=== PATIENT | male | born 1955 | race Caucasian/White ===

== ENCOUNTER 2020-10-31 19:35 | Inpatient (IN) | payer OTHER ==
[~2020-10-31] VITALS: Ht 188 cm; Wt 57.5 kg
[2020-10-31] MEDS ORDERED: FOLIC ACID 1 MG, MULTIPLE VITAMIN 10 ML, MAGNESIUM SULF SDV 50% 8 MEQ, THIAMINE INJ 100... INJ STA ×5 (20:11)
[2020-10-31 21:10] LABS: Albumin 2.9 g/dL (3.4-5.0); Anion Gap 15 (5-15); Blood Urea Nitrogen 30 mg/dL (7-18); Carbon Dioxide 24 mmol/L (21-32); Chloride 92 mmol/L (98-107); Glucose 88 mg/dL (74-106); Lipase 241 U/L (73-393); Magnesium 2.5 mg/dL (1.6-2.6); Potassium 3.3 mmol/L (3.5-5.1); Sodium 131 mmol/L (136-145)
[2020-10-31 21:12] LABS: Alanine Aminotransferase 29 U/L (16-61); Aspartate Aminotransferase 25 U/L (15-37); BUN/Creatinine Ratio 46.9; GFR African American 161 mL/min; GFR Non-African American 133 mL/min
[2020-10-31 21:14] LABS: Basophils # (auto) 0 10 ^3/uL (0-0.2); Eosinophils # (auto) 0 10 ^3/uL (0-0.8); Monocytes # (auto) 0.1 10 ^3/uL (0-1.3); Platelet Count (auto) 50 10^3/uL (140-450); White Blood Cell 4.1 10^3/uL (4.4-10.8)
[2020-10-31 21:15] LABS: Eosinophils % (auto) 0.8 % (0.0-7.0); Hemoglobin 13.9 g/dL (13.5-17.5); Lymphocytes # (auto) 0.6 10 ^3/uL (0.4-5.4); Lymphocytes % (auto) 13.7 % (10.0-50.0); Mean Corpuscular Hemoglobin 33.5 pg (28.0-32.0); Mean Corpuscular Hgb Conc. 35.5 g/dL (32.0-36.0); Mean Corpuscular Volume 94.3 fL (80.0-100.0); Monocytes % (auto) 1.8 % (0.0-12.0); Neutrophils # (auto) 3.5 10 ^3/uL (1.6-8.6); Neutrophils % (auto) 83.7 % (37.0-80.0); Nucleated Red Blood Cells % 0.2 %; Red Blood Cells 4.14 10^6/uL (4.5-5.90); Red Cell Distribution Width 11.9 % (11.8-14.3)
[2020-10-31 21:17] LABS: Alkaline Phosphatase 76 U/L (45-117); Bilirubin, Total 1.5 mg/dL (0.2-1.0); Total Protein 7.1 g/dL (6.4-8.2)
[2020-10-31 21:34] LABS: INR 1.04 (0.9-1.15)
[2020-10-31] MEDS ORDERED: CEFTRIAXONE SODIUM 2 GM in D5W 5% 50 ML IV ONE (22:30)
[2020-10-31] MEDS ORDERED: AZITHROMYCIN 500MG/ 250ML 250 ML IV ONE (22:30)
[2020-10-31] MEDS ORDERED: POTASSIUM EFFERVESENT TAB 25 MEQ GT ONE (23:00)
[2020-10-31] MEDS ORDERED: THIAMINE 100mg/ml INJ (200mg/2ml VIAL) ONE (23:02)
[2020-10-31] MEDS ORDERED: MVI in SODIUM CHLORIDE 0.9% 1,010 ML ONE (23:03)
[2020-10-31] MEDS ORDERED: cefTRIAXone SOD 1,000 MG VL ONE (23:14)
[2020-10-31] MEDS ORDERED: ONDANSETRON HCL 4 MG/2 ML VIAL IV PRN (23:45)
[2020-10-31] MEDS ORDERED: NITROGLYCERIN 0.4 MG SL TAB SL PRN (23:45)
[2020-10-31] MEDS ORDERED: HYDROcodone-ACET 5/325MG TAB PO PRN (23:45)
[2020-10-31] MEDS ORDERED: D5W/SOD CHLO 0.9% 1,000 ML IV SCH (23:45)
[2020-10-31] MEDS ORDERED: ACETAMINOPHEN 325 MG TAB PO PRN (23:45)
[2020-10-31] MEDS ORDERED: DOCUSATE SOD 100 MG CAP PO PRN (23:45)
[2020-10-31] MEDS ORDERED: MORPHINE SULF INJ 2 MG/ML SYRINGE 1ML IV PRN (23:45)
[2020-11-01] MEDS ORDERED: SODIUM CHLORIDE 0.9% 1,000 ML IV ONE (01:45)
[2020-11-01 08:09] LABS: Basophils # (auto) 0 10 ^3/uL (0-0.2); Basophils % (auto) 0.2 % (0.0-2.0); Eosinophils # (auto) 0 10 ^3/uL (0-0.8); Hematocrit 31.9 % (41.0-53.0); Hemoglobin 11.4 g/dL (13.5-17.5); Lymphocytes # (auto) 0.4 10 ^3/uL (0.4-5.4); Lymphocytes % (auto) 9.1 % (10.0-50.0); Mean Corpuscular Hemoglobin 33.7 pg (28.0-32.0); Mean Corpuscular Hgb Conc. 35.9 g/dL (32.0-36.0); Monocytes # (auto) 0.1 10 ^3/uL (0-1.3); Monocytes % (auto) 1.4 % (0.0-12.0); Neutrophils # (auto) 4.2 10 ^3/uL (1.6-8.6); Neutrophils % (auto) 88.3 % (37.0-80.0); Nucleated Red Blood Cells % 0.4 %; Platelet Count (auto) 40 10^3/uL (140-450); Red Blood Cells 3.39 10^6/uL (4.5-5.90); Red Cell Distribution Width 11.7 % (11.8-14.3); White Blood Cell 4.8 10^3/uL (4.4-10.8)
[2020-11-01 08:28] LABS: Albumin 2.4 g/dL (3.4-5.0); Calcium 7.4 mg/dL (8.5-10.1)
[2020-11-01 08:33] LABS: BUN/Creatinine Ratio 58.5; Bilirubin, Total 1.1 mg/dL (0.2-1.0); Total Protein 5.7 g/dL (6.4-8.2)
[2020-11-01] MEDS ORDERED: ZINC SULFATE 220mg CAP or TAB PO SCH (10:00)
[2020-11-01] MEDS ORDERED: AZITHROMYCIN 500MG/ 250ML 250 ML IV SCH (10:00)
[2020-11-01] MEDS ORDERED: ASCORBIC ACID 500 MG TAB PO SCH (10:00)
[2020-11-01] MEDS: FOLIC ACID 1 MG TAB PO SCH (11:34)
[2020-11-01] MEDS: THIAMINE HCL 100 MG TAB PO SCH (11:35)
[2020-11-01] MEDS: MULTIPLE VITAMIN TAB PO SCH (11:35)
[2020-11-01] MEDS: FAMOTIDINE 20 MG TAB PO SCH ×2 (11:36→23:19)
[2020-11-01] MEDS ORDERED: TAMSULOSIN HYDROCHLORIDE 0.4 MG CAP PO ONE (13:00)
[2020-11-01] MEDS: D5W/SOD CHLO 0.9% 1,000 ML IV SCH ×2 (14:36→23:00)
[2020-11-01] MEDS: POTASSIUM CHL 20MEQ/100ML 100 ML IV SCH ×3 (14:49→18:59)
[2020-11-01] MEDS: levoFLOXacin 750MG 150 ML IV SCH (15:24)
[2020-11-01 20:20] VITALS: BP 92/60
[2020-11-02 05:00] VITALS: BP 95/56
[2020-11-02 08:00] VITALS: BP 96/64
[2020-11-02 08:24] LABS: Basophils # (auto) 0 10 ^3/uL (0-0.2); Eosinophils # (auto) 0 10 ^3/uL (0-0.8); Eosinophils % (auto) 0.8 % (0.0-7.0); Neutrophils # (auto) 4.8 10 ^3/uL (1.6-8.6); Nucleated Red Blood Cells % 0.1 %; Platelet Count (auto) 32 10^3/uL (140-450); White Blood Cell 5.5 10^3/uL (4.4-10.8)
[2020-11-02 08:27] LABS: Hemoglobin 10.5 g/dL (13.5-17.5); Lymphocytes # (auto) 0.5 10 ^3/uL (0.4-5.4); Lymphocytes % (auto) 9.4 % (10.0-50.0); Mean Corpuscular Hemoglobin 34.3 pg (28.0-32.0); Mean Corpuscular Hgb Conc. 36.3 g/dL (32.0-36.0); Mean Corpuscular Volume 94.6 fL (80.0-100.0); Monocytes # (auto) 0.2 10 ^3/uL (0-1.3); Monocytes % (auto) 2.8 % (0.0-12.0); Red Blood Cells 3.07 10^6/uL (4.5-5.90); Red Cell Distribution Width 11.8 % (11.8-14.3)
[2020-11-02 08:58] LABS: BUN/Creatinine Ratio 42.4; Calcium 7.4 mg/dL (8.5-10.1)
[2020-11-02] MEDS ORDERED: ENOXAPARIN SOD 40 MG/0.4 ML SYRINGE SC SCH (10:00)
[2020-11-02] MEDS: D5W/SOD CHLO 0.9% 1,000 ML IV SCH ×2 (10:32→19:00)
[2020-11-02] MEDS: levoFLOXacin 750MG 150 ML IV SCH (10:32)
[2020-11-02] MEDS: THIAMINE HCL 100 MG TAB PO SCH (10:33)
[2020-11-02] MEDS: TAMSULOSIN HYDROCHLORIDE 0.4 MG CAP PO SCH (10:33)
[2020-11-02] MEDS: FOLIC ACID 1 MG TAB PO SCH (10:33)
[2020-11-02] MEDS: MULTIPLE VITAMIN TAB PO SCH (10:33)
[2020-11-02] MEDS: FAMOTIDINE 20 MG TAB PO SCH ×2 (10:34→22:15)
[2020-11-02 16:00] VITALS: BP 98/63
[2020-11-02] MEDS: POTASSIUM CHL 20MEQ/100ML 100 ML IV SCH ×2 (16:45→18:35)
[2020-11-02] MEDS: GABAPENTIN 300 MG CAP PO SCH (22:15)
[2020-11-02] MEDS: SOD CHL 0.9%/ KCL 20MEQ 1,000 ML IV SCH (22:35)
[2020-11-03 00:49] VITALS: BP 99/61
[2020-11-03 05:58] VITALS: BP 112/60
[2020-11-03] MEDS: GABAPENTIN 300 MG CAP PO SCH ×4 (06:00→22:31)
[2020-11-03 08:00] VITALS: BP 78/59
[2020-11-03 08:15] LABS: Basophils # (auto) 0 10 ^3/uL (0-0.2); Eosinophils # (auto) 0 10 ^3/uL (0-0.8); Lymphocytes # (auto) 0.6 10 ^3/uL (0.4-5.4); Mean Corpuscular Volume 94.1 fL (80.0-100.0); Monocytes # (auto) 0.2 10 ^3/uL (0-1.3); Neutrophils # (auto) 6.4 10 ^3/uL (1.6-8.6); White Blood Cell 7.3 10^3/uL (4.4-10.8)
[2020-11-03 08:17] LABS: Basophils % (auto) 0.1 % (0.0-2.0); Eosinophils % (auto) 0.3 % (0.0-7.0); Hematocrit 26.5 % (41.0-53.0); Hemoglobin 9.6 g/dL (13.5-17.5); Lymphocytes % (auto) 8.6 % (10.0-50.0); Mean Corpuscular Hemoglobin 34.2 pg (28.0-32.0); Mean Corpuscular Hgb Conc. 36.3 g/dL (32.0-36.0); Nucleated Red Blood Cells % 0.1 %; Platelet Count (auto) 32 10^3/uL (140-450); Red Blood Cells 2.81 10^6/uL (4.5-5.90); Red Cell Distribution Width 11.7 % (11.8-14.3)
[2020-11-03 08:33] LABS: BUN/Creatinine Ratio 30.8; Calcium 7.2 mg/dL (8.5-10.1); Potassium 3.2 mmol/L (3.5-5.1)
[2020-11-03] MEDS ORDERED: POTASSIUM EFFERVESENT TAB 25 MEQ PO ONE (08:45)
[2020-11-03] MEDS ORDERED: FOLI1TAB6 PO (09:04)
[2020-11-03] MEDS ORDERED: THIA100T10 PO (09:04)
[2020-11-03] MEDS ORDERED: TAM04C PO (09:04)
[2020-11-03] MEDS ORDERED: LEVO750T8 PO (09:04)
[2020-11-03] MEDS ORDERED: GABA300C10 PO (09:04)
[2020-11-03] MEDS: levoFLOXacin 750MG 150 ML IV SCH (10:05)
[2020-11-03] MEDS: FAMOTIDINE 20 MG TAB PO SCH ×2 (11:25→22:31)
[2020-11-03] MEDS: TAMSULOSIN HYDROCHLORIDE 0.4 MG CAP PO SCH (11:25)
[2020-11-03] MEDS: MULTIPLE VITAMIN TAB PO SCH (11:26)
[2020-11-03] MEDS: POTASSIUM EFFERVESENT TAB 25 MEQ GT SCH (11:26)
[2020-11-03] MEDS: FOLIC ACID 1 MG TAB PO SCH (11:27)
[2020-11-03] MEDS: THIAMINE HCL 100 MG TAB PO SCH (11:27)
[2020-11-03] MEDS: POTASSIUM CHL 20MEQ/100ML 100 ML IV SCH ×2 (11:28→13:15)
[2020-11-03] MEDS: SOD CHL 0.9%/ KCL 20MEQ 1,000 ML IV SCH ×2 (16:32→18:30)
[2020-11-03] MEDS ORDERED: POLYETHYLENE GLYCOL 17 GM PWDR PO ONE (19:15)
[2020-11-03 22:00] VITALS: BP 94/54
[2020-11-04] MEDS: SOD CHL 0.9%/ KCL 20MEQ 1,000 ML IV SCH ×3 (04:41→22:28)
[2020-11-04 05:00] VITALS: BP 138/54
[2020-11-04] MEDS: GABAPENTIN 300 MG CAP PO SCH ×3 (06:45→21:28)
[2020-11-04 09:00] VITALS: BP 105/61
[2020-11-04 10:11] LABS: Basophils # (auto) 0 10 ^3/uL (0-0.2); Basophils % (auto) 0.1 % (0.0-2.0); Eosinophils # (auto) 0 10 ^3/uL (0-0.8); Lymphocytes # (auto) 0.6 10 ^3/uL (0.4-5.4); Monocytes # (auto) 0.2 10 ^3/uL (0-1.3); Neutrophils # (auto) 7.2 10 ^3/uL (1.6-8.6)
[2020-11-04 10:13] LABS: Eosinophils % (auto) 0.4 % (0.0-7.0); Lymphocytes % (auto) 7.2 % (10.0-50.0); Monocytes % (auto) 2.5 % (0.0-12.0); Neutrophils % (auto) 89.8 % (37.0-80.0); Nucleated Red Blood Cells % 0.1 %
[2020-11-04 10:23] LABS: Hemoglobin 10.8 g/dL (13.5-17.5); Red Blood Cells 3.21 10^6/uL (4.5-5.90)
[2020-11-04 10:24] LABS: Hematocrit 30.5 % (41.0-53.0); Mean Corpuscular Hemoglobin 33.8 pg (28.0-32.0); Mean Corpuscular Hgb Conc. 35.6 g/dL (32.0-36.0); Mean Corpuscular Volume 95.1 fL (80.0-100.0); Platelet Count (auto) 36 10^3/uL (140-450); Red Cell Distribution Width 11.8 % (11.8-14.3)
[2020-11-04 10:25] LABS: Calcium 7.7 mg/dL (8.5-10.1); Potassium 3.6 mmol/L (3.5-5.1)
[2020-11-04 10:27] LABS: BUN/Creatinine Ratio 24.4
[2020-11-04] MEDS: THIAMINE HCL 100 MG TAB PO SCH (10:48)
[2020-11-04] MEDS: FOLIC ACID 1 MG TAB PO SCH (10:48)
[2020-11-04] MEDS: POTASSIUM EFFERVESENT TAB 25 MEQ GT SCH (10:48)
[2020-11-04] MEDS: TAMSULOSIN HYDROCHLORIDE 0.4 MG CAP PO SCH (10:49)
[2020-11-04] MEDS: MULTIPLE VITAMIN TAB PO SCH (10:49)
[2020-11-04] MEDS: FAMOTIDINE 20 MG TAB PO SCH ×2 (10:49→21:28)
[2020-11-04] MEDS: levoFLOXacin 750MG 150 ML IV SCH (11:25)
[2020-11-04 16:00] VITALS: BP 103/60
[2020-11-04 22:00] VITALS: BP 101/61
[2020-11-04] MEDS ORDERED: ATORVASTATIN 20 MG TAB PO SCH (22:00)
[2020-11-05 05:00] VITALS: BP 116/69
[2020-11-05] MEDS: GABAPENTIN 300 MG CAP PO SCH ×2 (05:30→14:25)
[2020-11-05 08:27] VITALS: BP 118/66
[2020-11-05] MEDS: levoFLOXacin 750MG 150 ML IV SCH (10:00)
[2020-11-05] MEDS: FOLIC ACID 1 MG TAB PO SCH (10:00)
[2020-11-05] MEDS ORDERED: ASPirin-EC 81 mg tab PO SCH (10:00)
[2020-11-05] MEDS: POTASSIUM EFFERVESENT TAB 25 MEQ GT SCH (10:00)
[2020-11-05] MEDS: THIAMINE HCL 100 MG TAB PO SCH (10:01)
[2020-11-05] MEDS: MULTIPLE VITAMIN TAB PO SCH (10:01)
[2020-11-05] MEDS: TAMSULOSIN HYDROCHLORIDE 0.4 MG CAP PO SCH (10:01)
[2020-11-05] MEDS: FAMOTIDINE 20 MG TAB PO SCH (10:01)
[2020-11-05] MEDS: SOD CHL 0.9%/ KCL 20MEQ 1,000 ML IV SCH (12:57)
[2020-11-05 16:19] VITALS: BP 129/79
[2020-11-05] MEDS ORDERED: ATORVASTATIN 20 MG TAB PO SCH (22:00)
[2020-11-06 09:25] LABS: Hepatitis B Surface Antibody Negative
[2020-11-06 13:20] LABS: Hepatitis B Surface Antigen Negative (Negative)
== END 2020-11-05 19:10 | disposition hospice, home (50) | DRG 64 ==
LOC: EDBD 19:35 → ER 19:35 → OVERFLOW 19:36 → TELE-CENTR 11-01 20:15
PROVIDERS: ADMIT Nurse Practitioner Family; ATTEND Internal Medicine
DX: I63.9 Cerebral infarction, unspecified (principal); J18.9 Pneumonia, unspecified organism; G93.41 Metabolic encephalopathy; C95.90 Leukemia, unspecified not having achieved remission; E87.1 Hypo-osmolality and hyponatremia; E44.0 Moderate protein-calorie malnutrition; Z68.1 Body mass index [BMI] 19.9 or less, adult; N39.0 Urinary tract infection, site not specified; Z20.822 Contact with and (suspected) exposure to COVID-19; R62.7 Adult failure to thrive; D69.6 Thrombocytopenia, unspecified; E87.8 Other disorders of electrolyte and fluid balance, not elsewhere classified; E86.0 Dehydration; E87.6 Hypokalemia; F10.10 Alcohol abuse, uncomplicated; R79.89 Other specified abnormal findings of blood chemistry; D69.59 Other secondary thrombocytopenia; D64.9 Anemia, unspecified; F17.210 Nicotine dependence, cigarettes, uncomplicated; G62.9 Polyneuropathy, unspecified; H26.9 Unspecified cataract; Z79.82 Long term (current) use of aspirin; Z79.899 Other long term (current) drug therapy; Z85.828 Personal history of other malignant neoplasm of skin
CPT/HCPCS: 36415; 70551; 71045; 80048; 80053; 80320; 82270; 82607; 83605; 83615; 83690; 83735; 84436; 84443; 84484; 85025; 85045; 85610; 86703; 86706; 86803; 86880; 87040; 87340; 87426; 93005; 93306; 93886; 96365; 96367; 96368; G0378; J0696; J1956; J3480; J7042; J7060